=== PATIENT | female | born 1945 | race Caucasian/White ===

== ENCOUNTER 2017-07-14 06:25 | Day surgery (SDC) | payer OTHER ==
[~2017-07-14] VITALS: Ht 157.5 cm; Wt 78.5 kg
--- NOTE | ~2017-07-14 | O ---
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 PROCEDURE: Right lower lid ectropion repair with transconjunctival right lower lid and cheek lift and permanent lateral tarsorrhaphy. SURGEON: Phoenix Bautista MD [employer]IST[employer] TEACHER: None. ANESTHESIA: MAC. COMPLICATIONS: None. 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 This is not anticipated to improve. She presents today for right lower lid and cheek procedure in order to attempt to improve her ocular surface milieu understanding that we are giving up some of her peripheral vision in order to protect her cornea and reduce her risk for loss of her eye. Informed consent was obtained to include but not limited to the potential risk for loss of vision, bleeding, infection, failure to improve the problem, the potential need for further surgery or treatment. DESCRIPTION OF PROCEDURE: The patient was taken to the operating room where 2% Xylocaine with epinephrine mixed with equal parts of 0.75% Marcaine with Wydase was administered transcutaneously and transconjunctivally to the right lateral canthus, the right upper lid, the right lower lid, the right cheek and the right infratemporal fossa. The patient was subsequently prepped and draped in the usual sterile fashion. A Samina clamp was used to clamp the right lateral canthus. [address] [address] OPERATIVE REPORT Name: CADEN HAMMOND Linh Room #: 150-12 [facility]#: [id number] Admission: 07/14/17 Attend Phys: Phoenix Bautista MD Discharge: Date of : 43 Report #: [id number] canthotomy and cantholysis was then performed. A tarsal strip was then prepared laterally removing the lash bearing portion of the redundant tarsal margin and the redundant lash bearing portion of the lid margin. Hemostasis was then re-achieved. The eyelid margin was denuded over the lateral one-third of the upper and lower lids central to the lashes. A pretarsal incision was then made parallel to the lid margin, 8 mm away from the lid margin in the upper and lower lid laterally. A transconjunctival incision was then made below the inferior border of the tarsal plate in the lower lid. The lower lid and cheek tissues were then dissected sharply allowing the lower lid and cheek to be re-elevated. The lower lid and cheek were then elevated and resuspended with interrupted 5-0 Prolene sutures. Attention was then turned to completion of the ectropion repair. The tarsal strip was secured to the internal portion of the lateral orbital tubercle with 2 interrupted 5-0 Prolene sutures. The subcutaneous structures and the skin in this area were then closed with interrupted 6-0 plain gut sutures. The permanent lateral tarsorrhaphy was then completed as interrupted mattress 6-0 Vicryl sutures were passed through the pretarsal pocket as they were dissected and then across the lid margin. That flap was then closed above and below with interrupted 6-0 plain gut sutures. The wounds were then cleaned and dressed with erythromycin ophthalmic ointment and the patient subsequently transported to the recovery area having tolerated the procedures well with no anesthetic or operative complications being noted. CC: Dr. True Donaldson. By: [id number] Phoenix Bautista MD /allyn
[~2017-07-14 06:25] MED LIST: ASPIRIN325 PO; CELEXA40 MG PO; LAMOTRIGINE PO; LEVEMIR SUBQ; LIPITOR80 MG PO; LISINOPRIL20 MG PO; NORVASC5 MG PO; NOVOLOG100 UNIT/1 SUBQ; PILOCARPINE HCL5 M1 PO; SEROQUEL XR 30300 M1 PO; SYNTHROID175 MCG PO
[2017-07-14 11:46] VITALS: BP 130/86
== END 2017-07-14 09:30 | disposition home or self-care (01) ==
LOC: TBA 06:25 → OR 06:25
DX: H02.102 Unspecified ectropion of right lower eyelid (principal); H02.202 Unspecified lagophthalmos right lower eyelid; H18.9 Unspecified disorder of cornea; F31.89 Other bipolar disorder; I10 Essential (primary) hypertension; E78.4 Other hyperlipidemia; E11.9 Type 2 diabetes mellitus without complications; E03.8 Other specified hypothyroidism; Z90.49 Acquired absence of other specified parts of digestive tract; Z90.710 Acquired absence of both cervix and uterus; Z79.899 Other long term (current) drug therapy; Z79.4 Long term (current) use of insulin; Z98.890 Other specified postprocedural states
CPT/HCPCS: 50010; 50101; 50386; 50398; 51636; 56527; 56528; 56531; 62110; 62850; 70005